=== PATIENT | female | born 1990 | race Caucasian/White ===

== ENCOUNTER 2018-03-10 09:48 | Observation (INO) ==
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
[2018-03-10 11:08] LABS: Baso % (Auto) 0.3 % (0.0-2.0); Eos % (Auto) 0.3 % (0.0-4.0); Hematocrit 38.2 % (35.0-46.0); Hemoglobin 12.8 gm/dL (11.6-15.3); Lymph # (Auto) 3.2 th/mm3 (1.0-4.8); Lymph % (Auto) 22.7 % (9.0-44.0); Mean Corpuscular HGB Conc 33.6 % (32.0-36.0); Mean Corpuscular Hemoglobin 31.9 pg (27.0-34.0); Mean Corpuscular Volume 94.9 fL (80.0-100.0); Mono # (Auto) 1.1 th/mm3 (0.0-0.9); Neut # (Auto) 9.7 th/mm3 (1.8-7.7); Neut % (Auto) 68.7 % (16.0-70.0); Platelet Count 343 th/mm3 (150-450); Red Blood Count 4.03 mil/mm3 (4.00-5.30); Red Cell Distribution Width 15.3 % (11.6-17.2); White Blood Count 14.2 th/mm3 (4.0-11.0)
[2018-03-10 11:28] LABS: Alanine Aminotransferase 11 U/L (10-53); Albumin 3.6 g/dL (3.4-5.0); Anion Gap 10 meq/L (5-15); Aspartate Aminotransferase 11 U/L (15-37); Blood Urea Nitrogen 4 mg/dL (7-18); Calcium 8.4 mg/dL (8.5-10.1); Carbon Dioxide 19.3 meq/L (21.0-32.0); Chloride 110 meq/L (98-107); Glomerular Filtration Rate Greater Than 89 mL/min (>89); Glucose,Random 87 mg/dL (74-106); Magnesium 2.1 mg/dL (1.5-2.5); Sodium 139 meq/L (136-145)
[2018-03-10 11:36] LABS: Alkaline Phosphatase 137 U/L (45-117); Total Protein 7.8 g/dL (6.4-8.2)
--- NOTE | 2018-03-10 11:49 | CT ---
EXAM DATE: 03/10/2018 11:41 AM EST AGE/SEX: 27 years / Female INDICATIONS: Altered mental status., History of neurofibromatosis. CLINICAL DATA: This is the patient's initial encounter. Patient reports that signs and symptoms have been present for 2 weeks and indicates a pain score of 0/10. MEDICAL/SURGICAL HISTORY: None. . brain shunt RADIATION DOSE: 35.24 CTDI (mGy) [place] [facility] [place]. . TECHNIQUE: CT of the head without contrast. Using automated exposure control and adjustment of the mA and/or kV according to patient size, radiation dose was kept as low as reasonably achievable to ob tain optimal diagnostic quality images. DICOM format image data is available electronically for revi ew and comparison. FINDINGS: Shunt is seen entering from the frontal region with a residual small and slitlike. Patient may be ove r shunted. There is no parenchymal hemorrhage Versus described cranial masses or poorly visualized on this noncontrast CT. Partially calcified mass is seen involving the left clivus that is new from the comparison study. CONCLUSION: 1. History of neurofibromatosis with shunt. Small slitlike ventricles 2. MRI without and with contrast is suggested for further follow-up. 3. Previous described intracranial masses are not apparent on this noncontrast CT. Electronically signed by: Steve Ruiz MD Board Certified Radiologist 03/10/2018 11:47 AM EST
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
[2018-03-10] MEDS ORDERED: Bisacodyl 10 MG Supp RECTAL PRN (14:10)
[2018-03-10] MEDS ORDERED: Acetaminophen 325 MG Tablet PO PRN (14:10)
[2018-03-10] MEDS: Enoxaparin Inj 30 MG/0.3 ML Syringe SQ SCH (15:42)
[2018-03-10] MEDS: Sod Chloride 0.9% Inj 1,000 ML IV.CONT SCH (15:42)
--- NOTE | 2018-03-10 15:42 | XR ---
EXAM DATE: 03/10/2018 3:36 PM EST AGE/SEX: 27 years / Female INDICATIONS: Evaluate shunt patency CLINICAL DATA: This is the patient's initial encounter. Patient reports that signs and symptoms have been present for 1 day and indicates a pain score of Nonresponsive. MEDICAL/SURGICAL HISTORY: . meningioma, altered mental status . shunt COMPARISON: [facility] [place], CHEST PA & LAT, 08/02/2010. . FINDINGS: Examination includes two-view skull, two-view C-spine, and frontal views of the chest and abdomen. Ventriculostomy shunt tip is projected in the left lateral ventricle . The alignment of the tubing with the reservoir is maintained without evidence of separation. The shunt tubing has a normal course through the neck and chest without discontinuity or kink. The shunt tubing is coiled in the left pelvis without displacement of the bowel about the distal tip. CONCLUSION: Shunt tubing appears intact without evidence of disruption or kinking. Electronically signed by: Vj Fulton MD Board Certified Radiologist 03/10/2018 3:41 PM EST
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
--- NOTE | 2018-03-10 17:37 | P.CONNS ---
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 Xiao ([place], age 20), who has been seeing people who are not present and speaking to them including possibly some suicidal ideation. Brought by parents to PCP and then here, Rust acted, patient refusing admission, CT brain obtained showing stable ventricle size and shunt series intact. Psych history so presentation currently unlikely to be neurosurgically related. PMFSH - History History Provided By: Patient - Surgical History Surgical History: Surgical History (Last Updated 03/10/18 @ 10:47 by sIamar Martin) History of brain shunt - Tobacco History Smoking Status: Unknown if ever smoked - Alcohol History How Often Do You Have a Drink Containing Alcohol: Unable to Obtain - Substance Use History Substance History: Unable to Obtain - Travel History Recent Travel in the [place] Within the Last 8 Weeks: No Recent Travel Out of the Country Within the Last 8 Weeks: No - Immunization History Tetanus Immunization: Unable to Assess Medications and Allergies Active Medications: Active Medications Acetaminophen (Tylenol) 650 mg PO Q4H PRN PRN Reason: Temp > 100.4 Al Hydroxide/Mg Hydroxide (Milk Of Magnesia Liq) 30 ml PO Q12H PRN PRN Reason: Mild Constipation Bisacodyl (Dulcolax Supp) 10 mg RECTAL DAILY PRN PRN Reason: SEVERE CONSITIPATION Enoxaparin Sodium (Lovenox Inj) 30 mg SQ Q24H [facility] Last Admin: 03/10/18 15:42 Dose: Not Given Sodium Chloride (Ns Inj) 1,000 mls @ 100 mls/hr IV.CONT .Q10H [facility] Last Admin: 03/10/18 15:42 Dose: Not Given Lactulose (Lactulose Liq) 30 ml PO DAILY PRN PRN Reason: SEVERE CONSITIPATION Lorazepam (Ativan Inj) 0.5 mg IV.PUSH Q4H PRN PRN Reason: AGITATION Ondansetron HCl (Zofran Inj) 4 mg IV.PUSH Q6H PRN PRN Reason: NAUSEA OR VOMITING Senna/Docusate Sodium (Kimi-Colace) 1 tab PO BID [facility] Sennosides (Senokot) 17.2 mg PO Q12H PRN PRN Reason: Moderate Constipation Sodium Chloride (Ns Flush) 2 ml IV.FLUSH BID [facility] Sodium Chloride (Ns Flush) 2 ml IV.FLUSH PRN PRN PRN Reason: FLUSH AFTER USING IV ACCESS Allergies Allergy/AdvReac Type Severity Reaction Status Date / Time ibuprofen Allergy Severe HIVES Unverified 10/23/16 18:39 mold Allergy Mild HIVES Unverified 10/23/16 18:39 Exam Vital signs: Vital Signs 03/10/18 09:52 03/10/18 10:47 Temperature 97.6 F Pulse Rate 116 H 114 H Respiratory Rate 20 17 Blood Pressure 110/72 114/53 L Pulse Oximetry 97 99 Intake & Output 03/09/18 03/10/18 03/10/18 18:59 06:59 18:59 Weight 49.895 kg Narrative: A&O to person, place, requesting to be discharged CN II-XII intact Motor 5/5 UE/LE Shunt incisions c/d/i Results - Laboratory Findings CBC and BMP: 03/10/18 10:55 03/10/18 10:55 Abnormal lab findings: Abnormal Labs 03/10/18 03/10/18 10:55 10:55 WBC 14.2 H Neut # (Auto) 9.7 H [place] # (Auto) 1.1 H Chloride 110 H Carbon Dioxide 19.3 L BUN 4 L Calcium 8.4 L AST 11 L Alkaline Phosphatase 137 H Assessment and Plan - Plan 27yoF s/p LIBRARIAN HELPER Shunt, with NF2, implanted in [place] ([place], 2011), admitted with psychiatric hallucinations. Head CT, shunt series stable. Current presentation unlikely related to shunt or neurosurgical issue. Please call with questions.
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
[2018-03-10] MEDS: Senna/Docusate Sodium 8.6/50 MG Tablet PO SCH (22:03)
[2018-03-11] MEDS: Sod Chloride 0.9% Inj 1,000 ML IV.CONT SCH ×2 (02:20→10:08)
[2018-03-11 07:59] LABS: Baso % (Auto) 0.1 % (0.0-2.0); Eos # (Auto) 0.1 th/mm3 (0.0-0.4); Eos % (Auto) 0.8 % (0.0-4.0); Hemoglobin 11.3 gm/dL (11.6-15.3); Lymph # (Auto) 2.6 th/mm3 (1.0-4.8); Mean Corpuscular HGB Conc 33.2 % (32.0-36.0); Mean Corpuscular Hemoglobin 31.6 pg (27.0-34.0); Mean Corpuscular Volume 95.2 fL (80.0-100.0); Mean Platelet Volume 8.6 fL (7.0-11.0); Mono # (Auto) 0.8 th/mm3 (0.0-0.9); Mono % (Auto) 7.4 % (0.0-8.0); Neut # (Auto) 7.8 th/mm3 (1.8-7.7); Neut % (Auto) 68.7 % (16.0-70.0); Platelet Count 232 th/mm3 (150-450); Red Blood Count 3.57 mil/mm3 (4.00-5.30); White Blood Count 11.4 th/mm3 (4.0-11.0)
[2018-03-11 08:30] LABS: Alanine Aminotransferase 8 U/L (10-53); Alkaline Phosphatase 108 U/L (45-117); Anion Gap 6 meq/L (5-15); Aspartate Aminotransferase 9 U/L (15-37); Blood Urea Nitrogen 6 mg/dL (7-18); Calcium 8.2 mg/dL (8.5-10.1); Chloride 114 meq/L (98-107); Creatine Kinase 216 U/L (26-192); Glomerular Filtration Rate Greater Than 89 mL/min (>89); Glucose,Random 78 mg/dL (74-106); Potassium 3.5 meq/L (3.5-5.1); Sodium 144 meq/L (136-145); Total Protein 6.3 g/dL (6.4-8.2)
[2018-03-11] MEDS: Senna/Docusate Sodium 8.6/50 MG Tablet PO SCH ×2 (08:46→21:03)
[2018-03-11 08:53] LABS: CKMB Percent 3.1 % (0.0-4.0); Creatine Kinase MB 6.6 ng/mL (0.5-3.6)
--- NOTE | 2018-03-11 11:39 | P.PNNEU ---
Subjective Active Medications: Active Medications Acetaminophen (Tylenol) 650 mg PO Q4H PRN PRN Reason: Temp > 100.4 Al Hydroxide/Mg Hydroxide (Milk Of Magnesia Liq) 30 ml PO Q12H PRN PRN Reason: Mild Constipation Bisacodyl (Dulcolax Supp) 10 mg RECTAL DAILY PRN PRN Reason: SEVERE CONSITIPATION Enoxaparin Sodium (Lovenox Inj) 30 mg SQ Q24H [facility] Last Admin: 03/10/18 15:42 Dose: Not Given Sodium Chloride (Ns Inj) 1,000 mls @ 100 mls/hr IV.CONT .Q10H [facility] Last Infusion: 03/11/18 11:30 Dose: 0 mls/hr Lactulose (Lactulose Liq) 30 ml PO DAILY PRN PRN Reason: SEVERE CONSITIPATION Lorazepam (Ativan Inj) 0.5 mg IV.PUSH Q4H PRN PRN Reason: AGITATION Ondansetron HCl (Zofran Inj) 4 mg IV.PUSH Q6H PRN PRN Reason: NAUSEA OR VOMITING Senna/Docusate Sodium (Kimi-Colace) 1 tab PO BID [facility] Last Admin: 03/11/18 08:46 Dose: Not Given Sennosides (Senokot) 17.2 mg PO Q12H PRN PRN Reason: Moderate Constipation Sodium Chloride (Ns Flush) 2 ml IV.FLUSH BID [facility] Last Admin: 03/11/18 08:46 Dose: Not Given Sodium Chloride (Ns Flush) 2 ml IV.FLUSH PRN PRN PRN Reason: FLUSH AFTER USING IV ACCESS Allergies/Adverse Reactions: Allergies Allergy/AdvReac Type Severity Reaction Status Date / Time ibuprofen Allergy Severe HIVES Unverified 10/23/16 18:39 mold Allergy Mild HIVES Unverified 10/23/16 18:39 Physical Exam Vital signs: Vital Signs 03/10/18 19:25 03/11/18 00:00 03/11/18 04:00 Temperature 97.9 F 97 F L 98 F Pulse Rate 101 H 91 H 90 Respiratory Rate 18 18 20 Blood Pressure 90/55 L 97/59 L 91/54 L Pulse Oximetry 97 97 95 03/11/18 07:50 Temperature 98.5 F Pulse Rate 103 H Respiratory Rate 16 Blood Pressure 106/55 L Pulse Oximetry 99 Intake & Output 03/10/18 03/11/18 03/11/18 18:59 06:59 18:59 Intake Total 480 / 480 Balance 480 / 480 Weight 49.895 kg Intake: Oral 480 / 480 Narrative: awake knows month not yr knows town she lives in left eye blind old some r sided motor sx old alert - Urinary Catheter Management Straight Cath placed during this visit: no Reason for continuing: Not indwelling catheter Objective Laboratory Results - last 24 hr 03/10/18 03/10/18 03/10/18 10:55 10:55 10:55 WBC RBC Hgb Hct MCV MCH MCHC RDW Plt Count MPV Neut % (Auto) Lymph % (Auto) [place] % (Auto) Eos % (Auto) Baso % (Auto) Neut # (Auto) Lymph # (Auto) [place] # (Auto) Eos # (Auto) Baso # (Auto) WBC Differential Differential Comment ESR 26 H Sodium Potassium Chloride Carbon Dioxide Anion Gap BUN Creatinine Estimated GFR Random Glucose Calcium Total Bilirubin Direct Bilirubin Indirect Bilirubin AST ALT Alkaline Phosphatase Total Creatine Kinase CK-MB (CK-2) CK-MB (CK-2) % Total Protein Albumin Vitamin B12 123 L Beta HCG, Qual Less than 1.0 03/11/18 03/11/18 06:51 06:57 WBC 11.4 H RBC 3.57 L Hgb 11.3 L Hct 34.0 L MCV 95.2 MCH 31.6 MCHC 33.2 RDW 15.0 Plt Count 232 D MPV 8.6 Neut % (Auto) 68.7 Lymph % (Auto) 23.0 [place] % (Auto) 7.4 Eos % (Auto) 0.8 Baso % (Auto) 0.1 Neut # (Auto) 7.8 H Lymph # (Auto) 2.6 [place] # (Auto) 0.8 Eos # (Auto) 0.1 Baso # (Auto) 0.0 WBC Differential . Differential Comment Auto diff final ESR Sodium 144 Potassium 3.5 Chloride 114 H Carbon Dioxide 24.0 Anion Gap 6 BUN 6 L Creatinine 0.48 L Estimated GFR Greater than 89 Random Glucose 78 Calcium 8.2 L Total Bilirubin 0.3 Direct Bilirubin 0.1 Indirect Bilirubin 0.2 AST 9 L ALT 8 L Alkaline Phosphatase 108 Total Creatine Kinase 216 H CK-MB (CK-2) 6.6 H CK-MB (CK-2) % 3.1 Total Protein 6.3 L D Albumin 3.0 L D Vitamin B12 Beta HCG, Qual Review/Management - Review/Management Plan: imp refusing eeg and mri med team needs to find out from family what home meds are and if on sz meds restart that b12 shots and mvi stable neuro
[2018-03-11 12:05] LABS: Amphetamine Screen,Urine Neg (Neg); Barbiturate Screen,Urine Neg (Neg); Cannabinoid Screen,Urine Pos (Neg); Cocaine Screen,Urine Neg (Neg); Opiate Screen,Urine Neg (Neg)
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
[2018-03-11] MEDS ORDERED: clonazePAM 1 MG Tablet PO PRN (12:33)
[2018-03-11] MEDS: Enoxaparin Inj 30 MG/0.3 ML Syringe SQ SCH (14:31)
[2018-03-11] MEDS: Lacosamide 100 MG Tablet PO SCH (21:03)
[2018-03-11] MEDS: Topiramate 25 MG Tablet PO SCH (21:03)
[2018-03-11] MEDS: levETIRAcetam 500 MG Tablet PO SCH (21:03)
[2018-03-11 22:03] LABS: Amorphous Sediment,Urine Rare /hpf; Bacteria,Urine Occasional /hpf; Bilirubin,Urine Negative (Negative); Clarity,Urine Hazy (Clear); Color,Urine Yellow (Yellw/Straw); Glucose,Urine (UA) Negative (Negative); Leukocyte Esterase,Urine Small (Negative); Mucus,Urine Few /lpf (Occasional); Nitrite,Urine Negative (Negative); Squamous Epithelial Cell,Urine 1 /hpf (0-5)
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
[2018-03-12] MEDS ORDERED: Escitalopram 10 MG Tablet PO SCH (09:00)
--- NOTE | 2018-03-12 09:18 | P.PNNEU ---
Subjective Active Medications: Active Medications Acetaminophen (Tylenol) 650 mg PO Q4H PRN PRN Reason: Temp > 100.4 Al Hydroxide/Mg Hydroxide (Milk Of Magnesia Liq) 30 ml PO Q12H PRN PRN Reason: Mild Constipation Bisacodyl (Dulcolax Supp) 10 mg RECTAL DAILY PRN PRN Reason: SEVERE CONSITIPATION Clonazepam (Klonopin) 1 mg PO Q8HR PRN PRN Reason: ANXIETY AND/OR AGITATION Cyanocobalamin (Vitamin B12 Inj) 1,000 mcg SQ Q24H [facility] Stop: 03/13/18 12:01 Last Admin: 03/11/18 14:30 Dose: 1,000 mcg Enoxaparin Sodium (Lovenox Inj) 30 mg SQ Q24H [facility] Last Admin: 03/11/18 14:31 Dose: 30 mg Escitalopram Oxalate (Lexapro) 10 mg PO DAILY [facility] Lacosamide (Vimpat) 200 mg PO BID [facility] Last Admin: 03/11/18 21:03 Dose: 200 mg Lactulose (Lactulose Liq) 30 ml PO DAILY PRN PRN Reason: SEVERE CONSITIPATION Levetiracetam (Keppra) 1,500 mg PO BID [facility] Last Admin: 03/11/18 21:03 Dose: 1,500 mg Lorazepam (Ativan Inj) 0.5 mg IV.PUSH Q4H PRN PRN Reason: AGITATION Last Admin: 03/12/18 08:31 Dose: 0.5 mg Multivitamins (Theragran) 1 tab PO DAILY [facility] Last Admin: 03/11/18 13:40 Dose: 1 tab Ondansetron HCl (Zofran Inj) 4 mg IV.PUSH Q6H PRN PRN Reason: NAUSEA OR VOMITING Senna/Docusate Sodium (Kimi-Colace) 1 tab PO BID [facility] Last Admin: 03/11/18 21:03 Dose: 1 tab Sennosides (Senokot) 17.2 mg PO Q12H PRN PRN Reason: Moderate Constipation Sodium Chloride (Ns Flush) 2 ml IV.FLUSH BID [facility] Last Admin: 03/11/18 21:04 Dose: 2 ml Sodium Chloride (Ns Flush) 2 ml IV.FLUSH PRN PRN PRN Reason: FLUSH AFTER USING IV ACCESS Topiramate (Topamax) 150 mg PO BID [facility] Last Admin: 03/11/18 21:03 Dose: 150 mg Allergies/Adverse Reactions: Allergies Allergy/AdvReac Type Severity Reaction Status Date / Time ibuprofen Allergy Severe HIVES Unverified 10/23/16 18:39 mold Allergy Mild HIVES Unverified 10/23/16 18:39 Physical Exam Vital signs: Vital Signs 03/11/18 11:55 03/11/18 15:57 03/11/18 19:38 Temperature 99.0 F 98.5 F 99.3 F Pulse Rate 108 H 105 H 118 H Respiratory Rate 16 20 16 Blood Pressure 99/58 L 102/59 L 109/57 L Pulse Oximetry 95 95 97 03/11/18 23:27 03/12/18 04:00 03/12/18 08:05 Temperature 98.2 F 98.0 F 98.6 F Pulse Rate 108 H 110 H 116 H Respiratory Rate 16 16 17 Blood Pressure 96/54 L 98/56 L 102/59 L Pulse Oximetry 96 97 96 Intake & Output 03/11/18 03/12/18 03/12/18 18:59 06:59 18:59 Intake Total 1000 / 1000 Balance 1000 / 1000 Intake: IV 1000 / 1000 NS Inj 1,000 ML @ 100 mls/hr IV 1000 / 1000 .CONT .Q10H [facility] Rx#:[id number] Other: # Voids 2 Narrative: awake acting out - Urinary Catheter Management Straight Cath placed during this visit: no Reason for continuing: Not indwelling catheter Objective Laboratory Results - last 24 hr 03/11/18 03/11/18 11:41 11:41 Urine Color Yellow Urine Clarity Hazy H Urine pH 7.0 Ur Specific [place] 1.010 Urine Protein 30 H Urine Glucose (UA) Negative Urine Ketones Negative Urine Occult Blood Large H Urine Nitrate Negative Urine Bilirubin Negative Urine Urobilinogen Less than 2 Ur Leukocyte Esterase Small H Urine RBC Urine WBC 13 H Urine WBC Clumps Rare H Ur Squamous Epith Cells 1 Amorphous Sediment Rare H Urine Bacteria Occasional H Urine Mucus Few H Micro UA Comment Culture indicated Ur Microscopic Review Not Reportable Urine Culture Comments Culture indicated Urine Opiates Screen Neg Ur Barbiturates Screen Neg Ur Amphetamines Screen Neg U Benzodiazepines Scrn Neg Urine Cocaine Screen Neg U Cannabinoids Screen Pos H Review/Management - Review/Management Plan: imp refusing eeg and mri med team needs to find out from family what home meds are and if on sz meds restart that b12 shots and mvi stable neuro ----- 03/12/18 on vimpat top and keppra maxed out eeg shows some left frontal cnetral sharps > right will add tegretol
[2018-03-12] MEDS ORDERED: carBAMazepine 200 MG Tablet PO SCH (10:00)
[2018-03-12] MEDS: levETIRAcetam 500 MG Tablet PO SCH (10:22)
[2018-03-12] MEDS: Topiramate 25 MG Tablet PO SCH (10:23)
[2018-03-12] MEDS: Senna/Docusate Sodium 8.6/50 MG Tablet PO SCH (10:23)
[2018-03-12] MEDS: Lacosamide 100 MG Tablet PO SCH (11:09)
[2018-03-12 11:14] LABS: Anti-Nuclear Antibody Screen Neg (Neg)
[2018-03-12 11:23] VITALS: RESP 16
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
[2018-03-12] MEDS: Enoxaparin Inj 30 MG/0.3 ML Syringe SQ SCH (13:15)
[2018-03-12] MEDS ORDERED: Sod Chloride 0.9% Inj 1,000 ML IV.CONT SCH (14:17)
--- NOTE | 2018-03-12 14:45 | MG ---
cc: Sana Klein MD DATE: 03/12/2018. REFERRING PHYSICIAN: Dr. Del Toro Room: F67 With photic stimulation awake, uncooperative. EEG 08/04/2010 was done. I do not have the report nor the report of the CT. Admitted with visual and auditory hallucinations, combative upon arrival to the ER. History of cerebellar mass, SAUSAGE CANNER shunt on Lovenox, B12, Vimpat, Keppra, Theragran and topiramate. DESCRIPTION OF RECORD: Noted from the beginning portion of the study at Epoch 12, there are what looks like sharp waves seen bilaterally, but more prominent over the left mid to the right; initially seen at Epoch 12, at 13 and stops before Epoch 14 and then restart again at 18, 20, 30. Again, at Epoch 59. They are not continuous or rhythmic, off and on throughout the recording. Hyperventilation was started towards the end of the recording as well as photic. Photic showed more eye movement. IMPRESSION: Abnormal EEG due to bilateral sharps as described consistent with what looks like epileptic potentials in this patient. Clinical correlation. MD REJI Khan/ramses/jm , 12:57 PM , 01:02 PM
[2018-03-12 15:24] VITALS: BP 85/54; PULSE 95; TEMP 98.7; O2SAT 96
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
== END 2018-03-12 16:02 ==
LOC: NEPE 09:48 → NEDA 09:48 → NEPFCDU 18:58
PROVIDERS: ADMIT Hospitalist; ATTEND Hospitalist
DX: H54.62 Unqualified visual loss, left eye, normal vision right eye; Z91.5 Personal history of self-harm; R45.851 Suicidal ideations; Q85.02 Neurofibromatosis, type 2; R26.9 Unspecified abnormalities of gait and mobility; Z87.820 Personal history of traumatic brain injury; D72.829 Elevated white blood cell count, unspecified; G40.909 Epilepsy, unspecified, not intractable, without status epilepticus; Z79.899 Other long term (current) drug therapy; R45.1 Restlessness and agitation; Z78.1 Physical restraint status; Z98.2 Presence of cerebrospinal fluid drainage device; E53.8 Deficiency of other specified B group vitamins; R44.0 Auditory hallucinations; R41.89 Other symptoms and signs involving cognitive functions and awareness; R44.1 Visual hallucinations; R94.01 Abnormal electroencephalogram [EEG]; F12.10 Cannabis abuse, uncomplicated; F32.9 Major depressive disorder, single episode, unspecified; M79.7 Fibromyalgia; R41.82 Altered mental status, unspecified; R00.0 Tachycardia, unspecified
CPT/HCPCS: 70250; 70450; 71010; 71045; 72040; 74000; 74018; 80048; 80053; 80076; 80177; 80299; 80307; 81001; 82491; 82550; 82552; 82607; 83735; 83918; 83921; 84443; 84703; 85025; 85651; 85652; 86038; 86592; 87086; 90774; 90784; 95819; 96361; 96372; 96374; 96376; 97162; 99291; C8952; G0378; G8987; G8988; J1650; J2060; J3420; J7030

== ENCOUNTER 2018-03-12 16:20 | Inpatient (IN) ==
[2018-03-12] MEDS ORDERED: Aluminum/Magnesium/Simethacone Susp 30 ML UDC PO PRN (19:11)
[2018-03-12] MEDS: Topiramate 25 MG Tablet PO SCH (20:27)
[2018-03-12] MEDS: carBAMazepine 200 MG Tablet PO SCH (20:27)
[2018-03-12] MEDS: levETIRAcetam 500 MG Tablet PO SCH (20:27)
[2018-03-12] MEDS: Topiramate 100 MG Tablet PO SCH (20:27)
[2018-03-12] MEDS: Lacosamide 100 MG Tablet PO SCH (20:28)
[2018-03-13] MEDS ORDERED: Haloperidol Inj 5 MG/ML Ampul ONE (06:16)
[2018-03-13] MEDS ORDERED: Haloperidol Inj 5 MG/ML Ampul IM ONE (06:45)
[2018-03-13] MEDS: carBAMazepine 200 MG Tablet PO SCH ×3 (08:25→20:48)
[2018-03-13] MEDS: Topiramate 25 MG Tablet PO SCH ×3 (08:25→20:48)
[2018-03-13] MEDS: Lacosamide 100 MG Tablet PO SCH ×3 (08:25→20:49)
[2018-03-13] MEDS: Topiramate 100 MG Tablet PO SCH ×3 (08:25→20:48)
[2018-03-13] MEDS: levETIRAcetam 500 MG Tablet PO SCH ×3 (08:25→20:48)
[2018-03-13] MEDS: Escitalopram 10 MG Tablet PO SCH ×2 (08:26→11:26)
[2018-03-13 08:34] LABS: Anion Gap 9 meq/L (5-15); Blood Urea Nitrogen 6 mg/dL (7-18); Calcium 8.3 mg/dL (8.5-10.1); Chloride 113 meq/L (98-107); Cholesterol 102 mg/dL (120-200); Glomerular Filtration Rate Greater Than 89 mL/min (>89); Glucose,Random 102 mg/dL (74-106); Sodium 144 meq/L (136-145)
[2018-03-13 08:38] LABS: Chol/HDL Ratio 2.57 Ratio; HDL Cholesterol 39.6 mg/dL (40.0-60.0); LDL Cholesterol,Calculated 48 mg/dL (0-99); Triglycerides 71 mg/dL (42-150)
[2018-03-13 09:21] LABS: Hemoglobin A1c 5.2 % (4.3-6.0)
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
[2018-03-13] MEDS ORDERED: Sod Chloride 0.9% Inj 1,000 ML IV.CONT SCH (17:33)
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
[2018-03-13] MEDS ORDERED: levETIRAcetam 1000mg/100mL Inj 100 ML IV.SIG ONE (20:42)
[2018-03-13 21:12] LABS: ABG Base Excess -3.4 mmol/L (-2-2); ABG PCO2 33 mmHg (38-42); ABG PO2 106 mmHG (61-120)
[2018-03-13] MEDS: Potassium Chlor 20 mEq Premix 20 MEQ/100 ML PIGGYBACK IV.SIG SCH ×2 (21:38→23:30)
--- NOTE | 2018-03-14 07:48 | P.PNNEU ---
Subjective Active Medications: Active Medications Al Hydrox/Mg Hydrox/Simethicone (Mag-Al Plus Susp Liq) 30 ml PO Q6H PRN PRN Reason: DYSPEPSIA Al Hydroxide/Mg Hydroxide (Milk Of Magnesia Liq) 30 ml PO Q12H PRN PRN Reason: Mild Constipation Carbamazepine (Tegretol) 200 mg PO BID [facility] Cyanocobalamin (Vitamin B12 Inj) 1,000 mcg SQ DAILY [facility] Stop: 03/16/18 23:59 Diphenhydramine HCl (Benadryl) 50 mg PO HS PRN PRN Reason: INSOMNIA Escitalopram Oxalate (Lexapro) 10 mg PO DAILY [facility] Last Admin: 03/13/18 11:26 Dose: 10 mg Lacosamide (Vimpat) 200 mg PO BID [facility] Last Admin: 03/13/18 20:49 Dose: Not Given Lactulose (Lactulose Liq) 30 ml PO DAILY PRN PRN Reason: SEVERE CONSITIPATION Levetiracetam (Keppra) 1,500 mg PO BID [facility] Last Admin: 03/13/18 20:48 Dose: Not Given Lorazepam (Ativan) 1 mg PO Q6H PRN PRN Reason: MODERATE TO SEVERE ANXIETY Risperidone (Risperdal) 1 mg PO BID [facility] Last Admin: 03/13/18 20:48 Dose: Not Given Sennosides (Senokot) 17.2 mg PO Q12H PRN PRN Reason: Moderate Constipation Topiramate (Topamax) 100 mg PO BID [facility] Last Admin: 03/13/18 20:48 Dose: Not Given Topiramate (Topamax) 50 mg PO BID [facility] Last Admin: 03/13/18 20:48 Dose: Not Given Allergies/Adverse Reactions: Allergies Allergy/AdvReac Type Severity Reaction Status Date / Time ibuprofen Allergy Severe HIVES Unverified 10/23/16 18:39 mold Allergy Mild HIVES Unverified 10/23/16 18:39 Physical Exam Vital signs: Vital Signs 03/13/18 17:34 03/14/18 05:37 Temperature 98.8 F 98 F Pulse Rate 119 H 98 H Respiratory Rate 16 16 Blood Pressure 103/62 101/59 L Pulse Oximetry 97 99 Intake & Output 03/13/18 03/14/18 03/14/18 18:59 06:59 18:59 Intake Total 120 / 120 660 / 660 Balance 120 / 120 660 / 660 Intake: IV 300 / 300 KCl 20 mEq Premix Inj 20 meq In 200 / 200 100 ml @ 50 mls/hr IV.SIG Q2H YOANA Rx#:[id number] Keppra 1000 mg/100 mL Premix 100 / 100 100 ML @ 400 mls/hr IV.SIG ONCE ONE Rx#:[id number] Oral 120 / 120 360 / 360 Other: # Voids 2 2 Narrative: awake less volatile moves all knows yr and place Objective Laboratory Results - last 24 hr 03/13/18 03/13/18 03/13/18 07:19 07:19 07:19 Puncture Site Patient Temperature O2 Saturation ABG pH ABG pCO2 ABG pO2 ABG HCO3 ABG O2 Content ABG Base Excess ABG Methemoglobin Akhil Test Hemoglobin Carboxyhemoglobin O2 Delivery Device Inspired O2 Critical Value Sodium 144 Potassium 3.0 L Chloride 113 H Carbon Dioxide 22.0 Anion Gap 9 BUN 6 L Creatinine 0.49 L Estimated GFR Greater than 89 Random Glucose 102 Hemoglobin A1c 5.2 Calcium 8.3 L Magnesium 2.1 Triglycerides 71 Cholesterol 102 L LDL Cholesterol, Calc 48 HDL Cholesterol 39.6 L Cholesterol/HDL Ratio 2.57 03/13/18 20:07 Puncture Site Right radial Patient Temperature 98.6 O2 Saturation 96 ABG pH 7.41 ABG pCO2 33 L ABG pO2 106 ABG HCO3 20 L ABG O2 Content 16.6 ABG Base Excess -3.4 L ABG Methemoglobin 1.5 Akhil Test + Hemoglobin 12.3 Carboxyhemoglobin 0.6 O2 Delivery Device Roomair Inspired O2 21 Critical Value No Sodium Potassium Chloride Carbon Dioxide Anion Gap BUN Creatinine Estimated GFR Random Glucose Hemoglobin A1c Calcium Magnesium Triglycerides Cholesterol LDL Cholesterol, Calc HDL Cholesterol Cholesterol/HDL Ratio Review/Management - Review/Management Plan: imp doing well on vimpat top keppra and cbz check level and inc to 200 bid check labs will fu saturday b12 shots and mvi recheck eeg saturday
[2018-03-14 07:55] LABS: Anion Gap 13 meq/L (5-15); Blood Urea Nitrogen 6 mg/dL (7-18); Calcium 8.8 mg/dL (8.5-10.1); Carbon Dioxide 17.2 meq/L (21.0-32.0); Chloride 114 meq/L (98-107); Glomerular Filtration Rate Greater Than 89 mL/min (>89); Glucose,Random 96 mg/dL (74-106); Potassium 3.4 meq/L (3.5-5.1); Sodium 144 meq/L (136-145)
[2018-03-14] MEDS: levETIRAcetam 500 MG Tablet PO SCH ×3 (08:35→21:49)
[2018-03-14] MEDS: Escitalopram 10 MG Tablet PO SCH (08:35)
[2018-03-14] MEDS: carBAMazepine 200 MG Tablet PO SCH ×3 (08:35→21:49)
[2018-03-14] MEDS: Lacosamide 100 MG Tablet PO SCH ×3 (08:36→21:50)
[2018-03-14] MEDS: Topiramate 100 MG Tablet PO SCH ×3 (08:36→21:50)
[2018-03-14] MEDS: Topiramate 25 MG Tablet PO SCH ×3 (08:36→21:50)
[2018-03-14 09:46] LABS: Baso % (Auto) 0.2 % (0.0-2.0); Eos % (Auto) 0.1 % (0.0-4.0); Hematocrit 34.8 % (35.0-46.0); Hemoglobin 11.2 gm/dL (11.6-15.3); Lymph # (Auto) 1.3 th/mm3 (1.0-4.8); Lymph % (Auto) 19.1 % (9.0-44.0); Mean Corpuscular HGB Conc 32.3 % (32.0-36.0); Mean Corpuscular Hemoglobin 31.4 pg (27.0-34.0); Mean Corpuscular Volume 97.1 fL (80.0-100.0); Mono # (Auto) 0.5 th/mm3 (0.0-0.9); Mono % (Auto) 6.7 % (0.0-8.0); Neut # (Auto) 5.1 th/mm3 (1.8-7.7); Neut % (Auto) 73.9 % (16.0-70.0); Platelet Count 276 th/mm3 (150-450); Red Blood Count 3.58 mil/mm3 (4.00-5.30); Red Cell Distribution Width 15.3 % (11.6-17.2); White Blood Count 6.9 th/mm3 (4.0-11.0)
[2018-03-14 10:15] LABS: Albumin 3.5 g/dL (3.4-5.0); Anion Gap 12 meq/L (5-15); Aspartate Aminotransferase 21 U/L (15-37); Blood Urea Nitrogen 7 mg/dL (7-18); Calcium 8.8 mg/dL (8.5-10.1); Carbon Dioxide 19.1 meq/L (21.0-32.0); Chloride 112 meq/L (98-107); Glomerular Filtration Rate Greater Than 89 mL/min (>89); Glucose,Random 114 mg/dL (74-106); Potassium 3.4 meq/L (3.5-5.1); Sodium 143 meq/L (136-145)
[2018-03-14 10:22] LABS: Alanine Aminotransferase 14 U/L (10-53); Alkaline Phosphatase 104 U/L (45-117); Carbamazepine (Tegretol) 4.6 mcg/mL (4.0-12.0); Total Protein 7.8 g/dL (6.4-8.2)
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
[2018-03-15] MEDS: LORazepam 1 MG Tablet PO PRN (08:27)
[2018-03-15] MEDS: carBAMazepine 200 MG Tablet PO SCH (08:27)
[2018-03-15] MEDS: Lacosamide 100 MG Tablet PO SCH (08:28)
[2018-03-15] MEDS: Escitalopram 10 MG Tablet PO SCH (08:28)
[2018-03-15] MEDS: levETIRAcetam 500 MG Tablet PO SCH (08:28)
[2018-03-15] MEDS: Topiramate 100 MG Tablet PO SCH (08:28)
[2018-03-15] MEDS: Topiramate 25 MG Tablet PO SCH (08:29)
--- NOTE | 2018-03-15 10:29 | P.PNPSY ---
Subjective Remarks: Patient is seen today sitting on the edge of her bed in her room with nurse Nicole, chart reviewed, patient compliant medication. Patient somewhat irritable somewhat delayed in her responses to my questions. She then started questioning me about my knowledge of her [employer] shunt. Asked me to define what it is. She then told me that she knows what it is. But kept perseverating on that until I set boundaries on my responses. For now continue treatment Review of Systems All other systems reviewed negative except as stated in HPI Mental Status Examination Appearance: Appropriate Consciousness: Alert, Clouded Orientation: Person, Place, Date/Time Motor Activity: Other (Unsteady gait) Speech: Hesitant, Slow Language: Adequate, Perseveration (Continued asking me to define "shunt") Fund of Knowledge: Inadequate Attention and Concentration: Inadequate Memory: Impaired Mood: Other ("good") Affect: Blunt Thought Process & Associations: Disorganized (At times) Thought Content: Thought blocking Hallucination Type: None Delusion Type: None Suicidal Ideation: No Suicidal Plan: No Suicidal Intention: No Homicidal Ideation: No Homicidal Plan: No Homicidal Intention: No Insight: Poor Judgment: Poor Assessment and Plan - Assessment (1) Unspecified psychosis Code(s): F29 - Unspecified psychosis not due to a substance or known physiological condition Status: Acute - Plan Plan: Patient remains psychotic somewhat paranoid and vigilant with little insight. Responses appears somewhat childlike and concrete Justification for Continued Inpatient Stay: At this time patient with decompensated placed in a lower level of care Discharge Planning: To be determined
[2018-03-16] MEDS: carBAMazepine 200 MG Tablet PO SCH ×3 (00:58→21:52)
[2018-03-16] MEDS: Topiramate 100 MG Tablet PO SCH ×3 (00:58→21:52)
[2018-03-16] MEDS: levETIRAcetam 500 MG Tablet PO SCH ×3 (00:58→21:51)
[2018-03-16] MEDS: Topiramate 25 MG Tablet PO SCH ×3 (00:59→21:50)
[2018-03-16] MEDS: Lacosamide 100 MG Tablet PO SCH ×3 (00:59→21:51)
[2018-03-16] MEDS: LORazepam 1 MG Tablet PO PRN ×2 (07:11→21:51)
[2018-03-16] MEDS: Escitalopram 10 MG Tablet PO SCH (08:59)
--- NOTE | 2018-03-16 13:37 | P.PNPSY ---
Subjective Remarks: Patient was seen and case discussed with nursing. Patient is minimally interactive during interview. She has thought blocking. Patient is flat and internally preoccupied. Per nursing she was sitting in the hallway on the floor. Poor p.o. intake Review of Systems All other systems reviewed negative except as stated in HPI Mental Status Examination Appearance: Appropriate Consciousness: Alert, Clouded Orientation: Person, Place, Date/Time Motor Activity: Other (Unsteady gait) Speech: Hesitant, Slow Language: Adequate, Perseveration (Continued asking me to define "shunt") Fund of Knowledge: Inadequate Attention and Concentration: Inadequate Memory: Impaired Mood: Other ("good") Affect: Blunt Thought Process & Associations: Disorganized (At times) Thought Content: Thought blocking Hallucination Type: None Delusion Type: None Suicidal Ideation: No Suicidal Plan: No Suicidal Intention: No Homicidal Ideation: No Homicidal Plan: No Homicidal Intention: No Insight: Poor Judgment: Poor Assessment and Plan - Assessment (1) Unspecified psychosis Code(s): F29 - Unspecified psychosis not due to a substance or known physiological condition Status: Acute - Plan Plan: Continue current treatment plan Justification for Continued Inpatient Stay: Patient would decompensate in a less restrictive setting
[2018-03-17] MEDS: Escitalopram 10 MG Tablet PO SCH (08:42)
[2018-03-17] MEDS: levETIRAcetam 500 MG Tablet PO SCH ×2 (08:42→20:41)
[2018-03-17] MEDS: Lacosamide 100 MG Tablet PO SCH ×2 (08:42→20:40)
[2018-03-17] MEDS: Topiramate 25 MG Tablet PO SCH ×2 (08:42→20:40)
[2018-03-17] MEDS: carBAMazepine 200 MG Tablet PO SCH ×2 (08:42→20:40)
[2018-03-17] MEDS: Topiramate 100 MG Tablet PO SCH ×2 (08:42→20:40)
--- NOTE | 2018-03-17 08:52 | MG ---
cc: Sana Klein MD EEG NUMBER: REFERRING PHYSICIAN: Alverto. ROOM: 400. Hyperventilation and photic not done, uncooperative Awake, drowsy, asleep alert but uncooperative. Her last EEG showed some sharps. Admitted with visual/auditory hallucinations, history of head injury, neurofibromatosis, brain shunt. MEDICATIONS: Tegretol, Vimpat, Keppra, Topamax, Risperdal, Ativan. DESCRIPTION OF RECORD: There is some spike wave activity seen at the beginning. Not continuous but bilateral. There is also quite a bit of artifact interspersed with it; but overall, there still seems to be sharps and spikes seen visible at epoch 21, 22, 23. Then a spike and wave at epoch 36, 41, 47. Interspersed between the abnormalities may be what seems like a normal alpha rhythm in the patient. IMPRESSION: Abnormal EEG due to spike and wave discharges as described, may be ongoing epileptic activity in this patient. Clinical correlation. Sana Klein MD DF/sharan , 08:27 AM , 08:38 AM
--- NOTE | 2018-03-17 09:54 | P.PNNEU ---
Subjective Active Medications: Active Medications Al Hydrox/Mg Hydrox/Simethicone (Mag-Al Plus Susp Liq) 30 ml PO Q6H PRN PRN Reason: DYSPEPSIA Al Hydroxide/Mg Hydroxide (Milk Of Magnesia Liq) 30 ml PO Q12H PRN PRN Reason: Mild Constipation Carbamazepine (Tegretol) 200 mg PO BID [facility] Last Admin: 03/17/18 08:42 Dose: 200 mg Cyanocobalamin (Vitamin B12 Inj) 1,000 mcg SQ Chávez@1200 [facility] Stop: 04/27/18 12:01 Last Admin: 03/16/18 21:53 Dose: 1,000 mcg Cyanocobalamin (Vitamin B12 Inj) 1,000 mcg SQ Q30D [facility] Diphenhydramine HCl (Benadryl) 50 mg PO HS PRN PRN Reason: INSOMNIA Escitalopram Oxalate (Lexapro) 10 mg PO DAILY [facility] Last Admin: 03/17/18 08:42 Dose: 10 mg Lacosamide (Vimpat) 200 mg PO BID [facility] Last Admin: 03/17/18 08:42 Dose: 200 mg Lactulose (Lactulose Liq) 30 ml PO DAILY PRN PRN Reason: SEVERE CONSITIPATION Levetiracetam (Keppra) 1,500 mg PO BID [facility] Last Admin: 03/17/18 08:42 Dose: 1,500 mg Lorazepam (Ativan) 1 mg PO Q6H PRN PRN Reason: MODERATE TO SEVERE ANXIETY Last Admin: 03/16/18 21:51 Dose: 1 mg Multivitamins (Theragran) 1 tab PO DAILY [facility] Last Admin: 03/17/18 08:42 Dose: 1 tab Risperidone (Risperdal) 1 mg PO BID [facility] Last Admin: 03/17/18 08:43 Dose: 1 mg Sennosides (Senokot) 17.2 mg PO Q12H PRN PRN Reason: Moderate Constipation Topiramate (Topamax) 100 mg PO BID [facility] Last Admin: 03/17/18 08:42 Dose: 100 mg Topiramate (Topamax) 50 mg PO BID [facility] Last Admin: 03/17/18 08:42 Dose: 50 mg Allergies/Adverse Reactions: Allergies Allergy/AdvReac Type Severity Reaction Status Date / Time ibuprofen Allergy Severe HIVES Unverified 10/23/16 18:39 mold Allergy Mild HIVES Unverified 10/23/16 18:39 Physical Exam Vital signs: Vital Signs 03/16/18 19:42 03/17/18 05:12 Temperature 98.6 F 98.1 F Pulse Rate 109 H 125 H Respiratory Rate 20 19 Blood Pressure 112/69 105/59 L Pulse Oximetry 96 96 Intake & Output 03/16/18 03/17/18 03/17/18 18:59 06:59 18:59 Intake Total 120 / 120 600 / 600 Balance 120 / 120 600 / 600 Weight 48.4 kg Intake: Oral 120 / 120 600 / 600 Other: # Voids 2 2 Narrative: gait steady some staring ? sz Review/Management - Review/Management Plan: imp doing well on vimpat top keppra and cbz check level and inc to 200 bid check labs will fu saturday b12 shots and mvi recheck eeg 03/17/18 eeg pend check cbz level i dw mom shunt is mri compatible she is ok with mri and pt says she will do one now fu labs
[2018-03-17 11:10] LABS: Baso % (Auto) 0.2 % (0.0-2.0); Eos % (Auto) 0.1 % (0.0-4.0); Hematocrit 35.2 % (35.0-46.0); Hemoglobin 11.5 gm/dL (11.6-15.3); Lymph # (Auto) 1.3 th/mm3 (1.0-4.8); Mean Corpuscular HGB Conc 32.7 % (32.0-36.0); Mean Corpuscular Hemoglobin 31.7 pg (27.0-34.0); Mean Platelet Volume 7.7 fL (7.0-11.0); Mono # (Auto) 0.5 th/mm3 (0.0-0.9); Mono % (Auto) 5.3 % (0.0-8.0); Neut # (Auto) 7.3 th/mm3 (1.8-7.7); Neut % (Auto) 80.4 % (16.0-70.0); Platelet Count 287 th/mm3 (150-450); Red Blood Count 3.63 mil/mm3 (4.00-5.30); Red Cell Distribution Width 15.3 % (11.6-17.2); White Blood Count 9.1 th/mm3 (4.0-11.0)
[2018-03-17 11:22] LABS: Anion Gap 12 meq/L (5-15); Blood Urea Nitrogen 5 mg/dL (7-18); Calcium 8.6 mg/dL (8.5-10.1); Carbon Dioxide 20.9 meq/L (21.0-32.0); Chloride 105 meq/L (98-107); Glomerular Filtration Rate Greater Than 89 mL/min (>89); Glucose,Random 83 mg/dL (74-106); Potassium 3.2 meq/L (3.5-5.1); Sodium 138 meq/L (136-145)
[2018-03-17 11:23] LABS: Carbamazepine (Tegretol) 10.5 mcg/mL (4.0-12.0)
[2018-03-17] MEDS: LORazepam 1 MG Tablet PO PRN (12:04)
--- NOTE | 2018-03-17 12:43 | P.PNPSY ---
Subjective Remarks: Patient seen for follow-up, chart reviewed. Discussion with nursing staff reported that patient with no ETO's last evening, continues to have poor p.o. intake, continues episodes of staring and thought blocking. Patient was found sitting in hospital bed noted to have difficulty with maintaining engagement in interview today. Has episodes of staring unclear whether patient is having any seizure activity during these episodes of staring. Patient appearing to have difficulty with comprehension during interview of certain questions, although is alert and oriented x3 still noted to be confused at times. She states she is feeling tired did recall having spoken with her mother and is under the impression that she will be discharged today. Patient was unable to elaborate further. Patient was reiterated that she would be having EEG and further MRI studies as recommended by neurologist which she was reluctant to believing that she will be going home today. Review of Systems All other systems reviewed negative except as stated in HPI Mental Status Examination Appearance: Appropriate Consciousness: Alert, Clouded Orientation: Person, Place, Date/Time Motor Activity: Other (Unsteady gait) Speech: Hesitant, Slow Language: Adequate, Perseveration (Continued asking me to define "shunt") Fund of Knowledge: Inadequate Attention and Concentration: Inadequate Memory: Impaired Mood: Other ("All right") Affect: Flat Thought Process & Associations: Disorganized (At times), Other ([place]) Thought Content: Thought blocking Hallucination Type: None Delusion Type: None Suicidal Ideation: No Suicidal Plan: No Suicidal Intention: No Homicidal Ideation: No Homicidal Plan: No Homicidal Intention: No Insight: Poor Judgment: Poor Assessment and Plan - Assessment (1) Unspecified psychosis Code(s): F29 - Unspecified psychosis not due to a substance or known physiological condition Status: Acute - Plan Plan: Patient this time continues to have difficulty with engaging adequately during interview was noted to have episodes of staring unclear whether this is related to seizure activity. We will continue current treatment regimen for now and continue neurologic workup, neurology consult input appreciated. We will continue to monitor mood and behavior. We will await results from workup to rule out neurological cause of patient's current mental status. We will order carbamazepine level. Discharge planning in progress. Justification for Continued Inpatient Stay: At risk of further decompensation at lower level care.
--- NOTE | 2018-03-17 13:17 | P.TTN ---
- Patient Problems Problems: 1. Discharge planning 2. Medication compliance 3. Knowledge deficit 4. Lack of coping skills - Progress Toward Goals Provider Present: Dr. Cash Gomez Provider Input: 03/17/2018; per doctor he order EGG, and will be making med adjustment Nurse(s) Present: RN Nurse Input: 03/17/2018; Patient is eating meals and taking her medication, she isolates and is very guarded Psychiatric Counselors Present: Shelley Burr [facility] Psychiatric Therapist Input: 03/17/2018; Counselor will discuss dc planning with patient and her family Group Spec/RT/OT/HOLT Present: JONATHON Yadav Group Spec/RT/OT/HOLT Input: 03/17/2018; patient isolates and refuses groups and activities - Documentation Teaching Recipient: Patient
[2018-03-17 13:27] LABS: Albumin 3.5 g/dL (3.4-5.0)
[2018-03-17 13:29] LABS: Total Protein 7.3 g/dL (6.4-8.2)
--- NOTE | 2018-03-17 16:49 | P.DIET ---
Nutritional Evaluation Type of nutrition evaluation: initial Nutrition consult regarding: Diet Evaluation Nutrition screening: Poor PO Intake Screening comments: 03/17/18 MDC for PPI Objective - Diagnosis psychosis NOS - Objective Body Mass Index: 19.5 % IBW: 97 (IBW = 110lb) Body Weight Used for Calculations: Actual (48.4) Energy Needs - Lower Range (kCal/kg): 28 Energy Needs - Upper Range (kCal/kg): 32 Lower Limit kCal/kg (kCals): 1,355 Upper Limit kCal/kg (kCals): 1,549 Lower Limit Protein Factor (Grams per Kg): 1.1 Upper Limit Protein Factor (Grams per Kg): 1.3 Lower Protein Needs (Protein): 53 Upper Protein Needs (Protein): 63 Dietitian Reviewed in Medical Record: Current diet, Curent medications, Intake & Output, Labs, Medical history Diet Order: regular Oral Diet Intake Amount: Poor <50% Objective Comments: PMH: closed head injury, CVA, neurofibromatosis II Meds: vit B12, MVI Assessment Assessment: Pt currently at nutritional risk r/t poor PO intake and relatively low BMI. Pt currently on a regular diet, has a variable PO intake, eating around 25-50% of most meals per chart. Spoke w/ RN about pts nutritional status, RN stated pt consumed only a 1/2 banana this a.m. She also mentioned that pt does not want to answer questions and is uncooperative, did not want to give any diet preferences. RD to recommend Ensure Enlive TID as PO supplement for additional nutrition. Continue to monitor PO and supplement intake. Labs reviewed, dietitian following. Recommendations: 1. RD to recommend Ensure Enlive TID as PO supplement for additional nutrition 2. Continue to monitor PO and supplement intake 3. Dietitian following Dietitian to Monitor: Lab values, Supplement acceptance, Intake & Output, Diet tolerance, Weight change, PO Intake, Medical course
--- NOTE | 2018-03-17 21:47 | MG ---
cc: Lyndon Zepeda MD ELECTROENCEPHALOGRAM RECORD NUMBER: [id number] DESCRIPTION: An 8-9 Hz background with high-frequency phase reversals at C3 and T3, epoch 8. Phase reversal at C3, epoch 9. Strong phase reversal sharp wave at C3, epoch 13. Background appearance of K complexes and spindles suggestive of stage II sleep. During wakeful state, background increment to 8-9 Hz and a lot of frontal high frequency artifact occurring with occasional phase reversals at C3 and asymmetric bursts of rhythmic delta and theta in the left frontocentral parietal region during wakefulness. Reduced driving with photic stimulation. Single-lead EKG showing sinus rhythm. INTERPRETATION: Abnormal focus in the left central region may be related to a structural lesion, epileptic focus. Clinical correlation. MD MAYRA Verdin/elies , 09:22 PM , 09:28 PM
[2018-03-18] MEDS: LORazepam 1 MG Tablet PO PRN ×2 (04:07→14:56)
--- NOTE | 2018-03-18 07:12 | CT ---
EXAM DATE: 03/18/2018 6:09 AM EST AGE/SEX: 27 years / Female INDICATIONS: Seizure. CLINICAL DATA: This is the patient's initial encounter. Patient reports that signs and symptoms have been present for 1 day and indicates a pain score of 0/10. MEDICAL/SURGICAL HISTORY: Cerebrovascular disease. Neurofibromatosis . Shunt. RADIATION DOSE: 56.35 CTDI (mGy) COMPARISON: [facility] [place], CT HEAD W/O CONTRAST, 03/10/2018. . TECHNIQUE: CT of the head without contrast. Using automated exposure control and adjustment of the mA and/or kV according to patient size, radiation dose was kept as low as reasonably achievable to ob tain optimal diagnostic quality images. DICOM format image data is available electronically for revi ew and comparison. FINDINGS: Left ventricular tube is present with tip in the region of the foramen of Monro and the ventricles ar e slitlike not significantly changed. There is a large approximate 2.8 cm left CP angle mass is diffi cult to accurately measure due to lack of contrast, however appears larger since the prior CT examina tion from 2010 at which time it measured almost 1.8 cm in size. There is mass effect on the medulla a nd fourth ventricle to a significant degree. There is a calcified meningioma in right high convexity posterior parietal 1.2 cm in size with a separate 1 adjacent to the superior clinoid on the left side measures 1.4 cm in size not significantly changed. There is no hemorrhage or extra-axial fluid colle ctions CONCLUSION: 1. 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 2. There are 2 calcified meningioma is not significantly changed. Electronically signed by: Angelina Mello MD Board Certified Radiologist 03/18/2018 7:10 AM EST
[2018-03-18] MEDS: Topiramate 100 MG Tablet PO SCH ×2 (08:55→20:27)
[2018-03-18] MEDS: carBAMazepine 200 MG Tablet PO SCH ×2 (08:55→20:27)
[2018-03-18] MEDS: Lacosamide 100 MG Tablet PO SCH ×2 (08:55→20:25)
[2018-03-18] MEDS: Topiramate 25 MG Tablet PO SCH ×2 (08:55→20:27)
[2018-03-18] MEDS: Escitalopram 10 MG Tablet PO SCH (08:55)
[2018-03-18] MEDS: levETIRAcetam 500 MG Tablet PO SCH ×2 (08:55→20:25)
[2018-03-18 14:32] LABS: Anion Gap 8 meq/L (5-15); Blood Urea Nitrogen 5 mg/dL (7-18); Calcium 8.8 mg/dL (8.5-10.1); Carbon Dioxide 23.7 meq/L (21.0-32.0); Chloride 108 meq/L (98-107); Glomerular Filtration Rate Greater Than 89 mL/min (>89); Glucose,Random 93 mg/dL (74-106); Potassium 3.7 meq/L (3.5-5.1); Sodium 140 meq/L (136-145)
--- NOTE | 2018-03-18 15:05 | P.PNPSY ---
Subjective Remarks: March 18, 2018 Subjective: Patient has not been sleeping. When I initially came to interview her she was sound asleep but this lasted only about an hour. When she was awake she appeared to be having trouble processing questions. Ask if she was hearing voices she said only the voices that other people can hear like people talking in the hallway and "downstairs". Patient has an acutely toxic appearance. Review of Systems Patient has multiple neurological and psychiatric problems and appears toxic. Her speech is hesitant and slow and she requires 3 repetition of questions along with rephrasing. She she responded to questions about what might be bothering her with her ears but that is not possible to get an explanation for exactly what she meant by this. Mental Status Examination Appearance: Disheveled Consciousness: Lethargic, Clouded Orientation: Person, Place, Date/Time Motor Activity: Other (Unsteady gait) Speech: Hesitant, Slow Language: Adequate, Perseveration (Continued asking me to define "shunt") Fund of Knowledge: Inadequate Attention and Concentration: Inadequate Memory: Impaired Mood: Other ("All right") Affect: Flat Thought Process & Associations: Disorganized (At times), Other ([place]) Thought Content: Thought blocking Hallucination Type: None Delusion Type: None Suicidal Ideation: No Suicidal Plan: No Suicidal Intention: No Homicidal Ideation: No Homicidal Plan: No Homicidal Intention: No Insight: Poor Judgment: Poor Assessment and Plan - Assessment (1) Unspecified psychosis Code(s): F29 - Unspecified psychosis not due to a substance or known physiological condition Status: Acute - Plan Plan: Patient this time continues to have difficulty with engaging adequately during interview was noted to have episodes of staring unclear whether this is related to seizure activity. We will continue current treatment regimen for now and continue neurologic workup, neurology consult input appreciated. We will continue to monitor mood and behavior. We will await results from workup to rule out neurological cause of patient's current mental status. We will order carbamazepine level. Discharge planning in progress. Justification for Continued Inpatient Stay: March 18, 2018 patient requires inpatient monitoring of multiple neurological as well as psychiatric issues that could not be managed at a lower level of care.
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
[2018-03-18] MEDS ORDERED: Haloperidol Inj 5 MG/ML Ampul ONE (21:41)
[2018-03-18 22:12] VITALS: TEMP 97.5
[2018-03-18] MEDS ORDERED: Haloperidol Inj 5 MG/ML Ampul IM ONE (22:15)
[2018-03-19 05:56] VITALS: BP 104/62; PULSE 97; RESP 16; O2SAT 98
--- NOTE | 2018-03-19 07:58 | P.PNNEU ---
Subjective Active Medications: Active Medications Al Hydrox/Mg Hydrox/Simethicone (Mag-Al Plus Susp Liq) 30 ml PO Q6H PRN PRN Reason: DYSPEPSIA Al Hydroxide/Mg Hydroxide (Milk Of Magnesia Liq) 30 ml PO Q12H PRN PRN Reason: Mild Constipation Carbamazepine (Tegretol) 200 mg PO BID [facility] Last Admin: 03/18/18 20:27 Dose: 200 mg Cyanocobalamin (Vitamin B12 Inj) 1,000 mcg SQ Chávez@1200 [facility] Stop: 04/27/18 12:01 Last Admin: 03/16/18 21:53 Dose: 1,000 mcg Cyanocobalamin (Vitamin B12 Inj) 1,000 mcg SQ Q30D [facility] Diphenhydramine HCl (Benadryl) 50 mg PO HS PRN PRN Reason: INSOMNIA Last Admin: 03/18/18 20:26 Dose: 50 mg Escitalopram Oxalate (Lexapro) 10 mg PO DAILY [facility] Last Admin: 03/18/18 08:55 Dose: 10 mg Lacosamide (Vimpat) 200 mg PO BID [facility] Last Admin: 03/18/18 20:25 Dose: 200 mg Lactulose (Lactulose Liq) 30 ml PO DAILY PRN PRN Reason: SEVERE CONSITIPATION Levetiracetam (Keppra) 1,500 mg PO BID [facility] Last Admin: 03/18/18 20:25 Dose: 1,500 mg Lorazepam (Ativan) 1 mg PO Q6H PRN PRN Reason: MODERATE TO SEVERE ANXIETY Last Admin: 03/18/18 14:56 Dose: 1 mg Multivitamins (Theragran) 1 tab PO DAILY [facility] Last Admin: 03/18/18 08:55 Dose: 1 tab Risperidone (Risperdal) 1 mg PO BID [facility] Last Admin: 03/18/18 20:26 Dose: 1 mg Sennosides (Senokot) 17.2 mg PO Q12H PRN PRN Reason: Moderate Constipation Topiramate (Topamax) 100 mg PO BID [facility] Last Admin: 03/18/18 20:27 Dose: 100 mg Topiramate (Topamax) 50 mg PO BID [facility] Last Admin: 03/18/18 20:27 Dose: 50 mg Allergies/Adverse Reactions: Allergies Allergy/AdvReac Type Severity Reaction Status Date / Time ibuprofen Allergy Severe HIVES Unverified 10/23/16 18:39 mold Allergy Mild HIVES Unverified 10/23/16 18:39 Physical Exam Vital signs: Vital Signs 03/18/18 08:18 03/18/18 12:25 03/18/18 17:57 Temperature 97.9 F 97.3 F L 97.9 F Pulse Rate 131 H 104 H 117 H Respiratory Rate 20 19 20 Blood Pressure 111/63 101/59 L 122/68 Pulse Oximetry 100 96 96 03/18/18 20:25 03/19/18 05:55 Temperature 97.5 F L 97.5 F L Pulse Rate 109 H 97 H Respiratory Rate 20 16 Blood Pressure 115/73 104/62 Pulse Oximetry 95 98 Narrative: jose pablo last pm a little juan c wilson answers some ? Objective Laboratory Results - last 24 hr 03/18/18 03/18/18 06:39 13:53 Sodium 140 Potassium 3.7 Chloride 108 H Carbon Dioxide 23.7 Anion Gap 8 BUN 5 L Creatinine 0.40 L Estimated GFR Greater than 89 Random Glucose 93 Calcium 8.8 Carbamazepine 10.7 Review/Management - Review/Management Plan: imp doing well on vimpat top keppra and cbz check level and inc to 200 bid check labs will fu saturday b12 shots and mvi recheck eeg 03/17/18 eeg pend check cbz level i dw mom shunt is mri compatible she is ok with mri and pt says she will do one now fu labs 03/19/18 worjking on mri cbz 10 eeg active left central temporal focus on 4 sz meds consider pbarb if eeg not better on cbz
[2018-03-19] MEDS: Lacosamide 100 MG Tablet PO SCH (08:16)
[2018-03-19] MEDS: levETIRAcetam 500 MG Tablet PO SCH (08:16)
[2018-03-19] MEDS: Escitalopram 10 MG Tablet PO SCH (08:16)
[2018-03-19] MEDS: carBAMazepine 200 MG Tablet PO SCH (08:16)
[2018-03-19] MEDS: Topiramate 100 MG Tablet PO SCH (08:16)
[2018-03-19] MEDS: Topiramate 25 MG Tablet PO SCH (08:17)
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
[2018-03-19 12:49] LABS: Free T4 (Free Thyroxine) 1.14 ng/dL (0.76-1.46); Thyroid Stimulating Hormone 0.532 uIU/mL (0.358-3.740); Vitamin B12 1452 pg/mL (193-986)
[2018-03-19] MEDS ORDERED: Gadobutrol PF 2 MMOL/2 ML Vial (for RAD) IV.SIG ONE (16:12)
--- NOTE | 2018-03-19 16:33 | MR ---
EXAM DATE: 03/19/2018 4:17 PM EST AGE/SEX: 27 years / Female INDICATIONS: . Neurofibromatosis type II. CLINICAL DATA: This is the patient's subsequent encounter. Patient reports that signs and symptoms h ave been present for > 1 year and indicates a pain score of 0/10. MEDICAL/SURGICAL HISTORY: . TBI, epilepsy . 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 TECHNIQUE: Multiplanar, multisequence MRI of the thoracic spine was performed without and with 5 ml Gadavist (gadobutrol) contrast as a single exam dose. FINDINGS: There are multiple homogeneously enhancing dural-based nodules within the thoracic spine at T7-8 ante riorly, T10 on the left posteriorly 11-12 posteriorly T12-L1 and L1 posteriorly also consistent with probable multiple schwannomas related to the patient's known diagnosis of neurofibromatosis type II. The largest lesion appears to be located at T11-12 and measures 9 mm. No spinal stenosis is noted. Th ere is no acute fracture or subluxation of the thoracic spine. Mild diffuse degenerative disc disease is noted from T5 through T11. T1-T2: The thecal sac has a normal diameter. No evidence of disc bulge or protrusion. T2-T3: The thecal sac has a normal diameter. No evidence of disc bulge or protrusion. T3-T4: The thecal sac has a normal diameter. No evidence of disc bulge or protrusion. T4-T5: The thecal sac has a normal diameter. No evidence of disc bulge or protrusion. T5-T6: The thecal sac has a normal diameter. No evidence of disc bulge or protrusion. T6-T7: The thecal sac has a normal diameter. No evidence of disc bulge or protrusion. T7-T8: The thecal sac has a normal diameter. No evidence of disc bulge or protrusion. T8-T9: The thecal sac has a normal diameter. No evidence of disc bulge or protrusion. T9-T10: The thecal sac has a normal diameter. No evidence of disc bulge or protrusion. T10-T11: The thecal sac has a normal diameter. No evidence of disc bulge or protrusion. T11-T12: The thecal sac has a normal diameter. No evidence of disc bulge or protrusion. T12-L1: The thecal sac has a normal diameter. No evidence of disc bulge or protrusion. CONCLUSION: 1. Multiple homogeneously enhancing dural-based nodules within the thoracic spine at T7-8 anteriorly , T10 on the left posteriorly 11-12 posteriorly T12-L1 and L1 posteriorly also consistent with probab le multiple schwannomas related to the patient's known diagnosis of neurofibromatosis type II. The la rgest lesion appears to be located at T11-12 and measures 9 mm. No spinal stenosis is noted. 2. No acute fracture or subluxation of the thoracic spine. 3. Mild diffuse degenerative disc disease is noted from T5 through T11. Electronically signed by: Larry Mendez MD Board Certified Radiologist 03/19/2018 4:31 PM EST
--- NOTE | 2018-03-19 16:34 | MR ---
EXAM DATE: 03/19/2018 4:14 PM EST AGE/SEX: 27 years / Female INDICATIONS: . Neurofibromatosis type II. CLINICAL DATA: This is the patient's subsequent encounter. Patient reports that signs and symptoms h ave been present for > 1 year and indicates a pain score of 0/10. MEDICAL/SURGICAL HISTORY: . TBI, epilepsy . 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 TECHNIQUE: Multiplanar, multisequence MRI examination of the cervical spine was performed without an d with 5 ml Gadavist (gadobutrol) contrast as a single exam dose. FINDINGS: The marrow signal appears intact, and the spinal cord appears intact for technique. There are masses in the visualized posterior fossa on the patient's brain discussed on the brain MRI. There 2 separate masses adjacent to one another measuring 1.5 cm in AP diameter and conglomerate size of 2.6 cm in th e left posterior paraspinal soft tissues and muscular structures with a separate one slightly caudal to it at the level of C3-4 measures 7 mm in size. These are most likely neurofibromas in this patien t with a history of neurofibromatosis. There is an approximate 1.6 cm subcutaneous nodule in the mel ent's right upper back at the level of T2 nonspecific could be a complicated cyst versus a subcutaneo us neurofibroma as well. C2-C3: No appreciable compromise to the thecal sac, exiting nerve roots are seen. The neural foramin a are patent bilaterally. No appreciable thecal sac stenosis is seen. C3-C4: No appreciable compromise to the thecal sac, exiting nerve roots are seen. The neural foramin a are patent bilaterally. No appreciable thecal sac stenosis is seen. C4-C5: No appreciable compromise to the thecal sac, exiting nerve roots are seen. The neural foramin a are patent bilaterally. No appreciable thecal sac stenosis is seen. C5-C6: No appreciable compromise to the thecal sac, exiting nerve roots are seen. The neural foramin a are patent bilaterally. No appreciable thecal sac stenosis is seen. C6-C7: No appreciable compromise to the thecal sac, exiting nerve roots are seen. The neural foramin a are patent bilaterally. No appreciable thecal sac stenosis is seen. C7-T1: No appreciable compromise to the thecal sac, exiting nerve roots are seen. The neural foramin a are patent bilaterally. No appreciable thecal sac stenosis is seen. CONCLUSION: 1. Soft tissue masses on the left posterolateral paraspinal at the level of C3-4 most likely neurofi bromas with masses within posterior fossa discussed on the patient's brain MRI. 2. Additional subcutaneous nodule identified in the right upper back posteriorly. 3. No appreciable compromise to spinal cord or exiting nerve roots. Electronically signed by: Angelina Mello MD Board Certified Radiologist 03/19/2018 4:33 PM EST
--- NOTE | 2018-03-19 16:42 | MR ---
EXAM DATE: 03/19/2018 4:21 PM EST AGE/SEX: 27 years / Female INDICATIONS: . Neurofibromatosis type II. CLINICAL DATA: This is the patient's subsequent encounter. Patient reports that signs and symptoms h ave been present for > 1 year and indicates a pain score of 0/10. MEDICAL/SURGICAL HISTORY: . TBI, epilepsy . 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 TECHNIQUE: Multiplanar, multisequence MRI examination of the lumbar spine was performed without and with 5 ml Gadavist (gadobutrol) contrast as a single exam dose. FINDINGS: There are multiple intradural, extra medullary homogeneously enhancing nodules throughout the lumbar and sacral thecal sac as well as within the lower thoracic thecal sac. These are too numerous to coun t and likely represent multiple schwannomas. Meningiomas can also have this appearance. The largest l esion is noted at the L3-4 level centrally and measures 7 mm. There are also neural foraminal lesions on the left at L5-S1 and on the right S1-S2 and L2-3. These also likely represent schwannomas. These lesions likely are related to the patient's known diagnosis of neurofibromatosis type II. T12-L1: The thecal sac has a normal diameter. No evidence of disc bulge or protrusion. The neural foramina are patent bilaterally. L1-L2: The thecal sac has a normal diameter. No evidence of disc bulge or protrusion. The neural foramina are patent bilaterally. L2-L3: The thecal sac has a normal diameter. No evidence of disc bulge or protrusion. The neural foramina are patent bilaterally. L3-L4: The thecal sac has a normal diameter. No evidence of disc bulge or protrusion. The neural foramina are patent bilaterally. L4-L5: The thecal sac has a normal diameter. No evidence of disc bulge or protrusion. The neural foramina are patent bilaterally. L5-S1: The thecal sac has a normal diameter. No evidence of disc bulge or protrusion. The neural foramina are patent bilaterally. CONCLUSION: 1. Multiple intradural, extra medullary homogeneously enhancing nodules throughout the lumbar and sa cral thecal sac as well as within the lower thoracic thecal sac. These are too numerous to count and likely represent multiple schwannomas. Meningiomas can also have this appearance. The largest lesion is noted at the L3-4 level centrally and measures 7 mm. There are also neural foraminal lesions on th e left at L5-S1 and on the right S1-S2 and L2-3. These also likely represent schwannomas. These lesio ns likely are related to the patient's known diagnosis of neurofibromatosis type II. Electronically signed by: Larry Mendez MD Board Certified Radiologist 03/19/2018 4:40 PM EST
--- NOTE | 2018-03-19 16:46 | MR ---
EXAM DATE: 03/19/2018 4:29 PM EST AGE/SEX: 27 years / Female INDICATIONS: Altered mental status. Neurofibromatosis type II. CLINICAL DATA: This is the patient's subsequent encounter. Patient reports that signs and symptoms h ave been present for > 1 year and indicates a pain score of 0/10. MEDICAL/SURGICAL HISTORY: . TBI, epilepsy . 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 . TECHNIQUE: Multiplanar, multisequence examination of the brain was performed without and with 5 ml Ga davist (gadobutrol) contrast as a single exam dose. FINDINGS: Approximate 1.4 cm extra-axial mass is seen in right high convexity posterior parietal most likely a small meningioma not present on the prior study from 2012. There is encephalomalacia in left mid osvaldo etal lobe with areas of congenital migrational anomalies at this site difficult to evaluate due to some degree of artifact from ventricular tube. The ventricles are slitlike. Separate meningiomas pres ent in the midline supracerebellar location dorsally measures 1.4 cm in size. 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 It measures 3 cm in transverse diameter, it me asured almost 2.8 cm on the study from 06/2012 therefore larger. There is also similar type of mass on the right side at the same level which measures 1.3 cm in size and also extends into the internal au ditory canal and this mass is also larger since the prior study. There is significant mass effect on the germán and fourth ventricle with significant deformity at this site and the mass effect is worse s rose 2012. The diffusion portion is unremarkable. CONCLUSION: 1. 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 2. There is a new meningioma in the right high convexity posterior parietal lobe. 3. Otherwise not significantly changed. Electronically signed by: Angelina Mello MD Board Certified Radiologist 03/19/2018 4:45 PM EST
[2018-03-21 13:29] LABS: Anti-Nuclear Antibody Screen Neg (Neg)
== END 2018-03-19 16:45 | disposition short-term general hospital (02) | DRG 885 ==
LOC: H4EA 16:20
PROVIDERS: ADMIT Student in an Organized Health Care Education/Training Program; ATTEND Student in an Organized Health Care Education/Training Program
CPT/HCPCS: 36600; 70450; 70553; 72156; 72157; 72158; 80048; 80061; 80076; 80156; 80177; 80299; 80307; 81001; 82140; 82491; 82550; 82552; 82607; 82805; 83036; 83735; 83918; 83921; 84425; 84439; 84443; 85025; 85651; 85652; 86038; 86430; 86431; 86592; 87086; 95819; 96361; 96372; 96376; 97162; A9585; G0378; G8987; G8988; J1630; J1650; J1953; J2060; J3420; J3480; J7030; Q0163

== ENCOUNTER 2018-03-19 11:50 | Inpatient (IN) ==
[2018-03-19] MEDS ORDERED: Bisacodyl 10 MG Supp RECTAL PRN (13:24)
[2018-03-19] MEDS ORDERED: Acetaminophen 325 MG Tablet PO PRN (13:24)
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
[2018-03-19] MEDS ORDERED: Topiramate 100 MG Tablet PO SCH (21:00)
[2018-03-19] MEDS: levETIRAcetam 500 MG Tablet PO SCH ×2 (22:24→22:30)
[2018-03-19] MEDS: Senna/Docusate Sodium 8.6/50 MG Tablet PO SCH ×2 (22:25→22:31)
[2018-03-19] MEDS: Topiramate 100 MG Tablet PO SCH ×2 (22:25→22:31)
[2018-03-19] MEDS: Topiramate 25 MG Tablet PO SCH ×2 (22:25→22:31)
[2018-03-19] MEDS: Lacosamide 100 MG Tablet PO SCH ×2 (22:25→23:00)
[2018-03-19] MEDS: carBAMazepine 100 MG Chewable Tablets PO SCH ×2 (22:25→22:31)
--- NOTE | 2018-03-20 08:09 | P.PNNEU ---
Subjective Active Medications: Active Medications Acetaminophen (Tylenol) 650 mg PO Q4H PRN PRN Reason: Temp > 100.4 Al Hydroxide/Mg Hydroxide (Milk Of Magnesia Liq) 30 ml PO Q12H PRN PRN Reason: Mild Constipation Bisacodyl (Dulcolax Supp) 10 mg RECTAL DAILY PRN PRN Reason: SEVERE CONSITIPATION Carbamazepine (Tegretol Chewable) 100 mg PO BID [facility] Last Admin: 03/19/18 22:31 Dose: 100 mg Lacosamide (Vimpat) 200 mg PO BID [facility] Last Admin: 03/19/18 23:00 Dose: 200 mg Lactulose (Lactulose Liq) 30 ml PO DAILY PRN PRN Reason: SEVERE CONSITIPATION Levetiracetam (Keppra) 1,500 mg PO BID [facility] Last Admin: 03/19/18 22:30 Dose: 1,500 mg Lorazepam (Ativan Inj) 1 mg IM Q6H PRN PRN Reason: Severe agitation Lorazepam (Ativan Inj) 2 mg IV.PUSH Q10M PRN PRN Reason: SEE LABEL COMMENTS Ondansetron HCl (Zofran Inj) 4 mg IV.PUSH Q6H PRN PRN Reason: NAUSEA OR VOMITING Phenobarbital (Phenobarbital) 60 mg PO Q12HR [facility] Risperidone (Risperdal) 1 mg PO BID [facility] Last Admin: 03/19/18 22:31 Dose: 1 mg Senna/Docusate Sodium (Kimi-Colace) 1 tab PO BID [facility] Last Admin: 03/19/18 22:31 Dose: 1 tab Sennosides (Senokot) 17.2 mg PO Q12H PRN PRN Reason: Moderate Constipation Sodium Chloride (Ns Flush) 2 ml IV.FLUSH BID [facility] Last Admin: 03/19/18 22:32 Dose: Not Given Sodium Chloride (Ns Flush) 2 ml IV.FLUSH PRN PRN PRN Reason: FLUSH AFTER USING IV ACCESS Topiramate (Topamax) 100 mg PO BID [facility] Last Admin: 03/19/18 22:31 Dose: 100 mg Topiramate (Topamax) 50 mg PO BID [facility] Last Admin: 03/19/18 22:31 Dose: 50 mg Allergies/Adverse Reactions: Allergies Allergy/AdvReac Type Severity Reaction Status Date / Time ibuprofen Allergy Severe HIVES Unverified 10/23/16 18:39 mold Allergy Mild HIVES Unverified 10/23/16 18:39 Physical Exam Vital signs: Vital Signs 03/19/18 20:00 03/20/18 00:00 03/20/18 04:00 Temperature 98.5 F 99.2 F 98.6 F Pulse Rate 99 H 90 100 H Respiratory Rate 18 18 18 Blood Pressure 98/56 L 105/64 100/63 Pulse Oximetry 97 98 98 Intake & Output 03/19/18 03/20/18 03/20/18 18:59 06:59 18:59 Weight 48.4 kg 48.9 kg Other: # Voids 2 Date of Last Bowel Movement 03/18/18 Weight On Admission 48.4 kg Narrative: awake alert Review/Management - Review/Management Plan: imp eeg 03/17 active left central sz focus i have started pbarb today and recheck eeg and if still active will dc cbz 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
[2018-03-20] MEDS: Lacosamide 100 MG Tablet PO SCH (10:35)
[2018-03-20] MEDS: levETIRAcetam 500 MG Tablet PO SCH (10:36)
[2018-03-20] MEDS: carBAMazepine 100 MG Chewable Tablets PO SCH (10:36)
[2018-03-20] MEDS: Senna/Docusate Sodium 8.6/50 MG Tablet PO SCH (10:36)
[2018-03-20] MEDS: Topiramate 25 MG Tablet PO SCH (10:36)
[2018-03-20] MEDS: Topiramate 100 MG Tablet PO SCH (10:37)
[2018-03-20 12:40] VITALS: BP 111/68; PULSE 97; RESP 18; TEMP 97.1; O2SAT 100
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
--- NOTE | 2018-03-20 14:58 | P.CONNS ---
History of Present Illness Service: Neurology Primary Care Provider: UNKNOWN Chief Complaint: Seizures with psychosis History of Present Illness: 27yoF with known NF2 s/p WARP DRESSER shunt by Dr. Xiao. Admitted with psychosis and seizures. 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 Patient has been hearing voices over last few months and not making decisions that are in line with her best interest. She was brought to ED as a thornton act by her parents shortly before Debbie and admitted to Psych. Neurosurgery at that time evaluated her shunt and found slit ventricles and an intact shunt system. 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 [facility] - History History Provided By: Medical Record - Medical History Medical History: Medical History (Last Reviewed 03/19/18 @ 18:04 by Sara Mahan) Closed head injury History of CVA (cerebrovascular accident) Neurofibromatosis II - Surgical History Surgical History: Surgical History (Last Reviewed 03/19/18 @ 18:04 by Sara Mahan) History of brain shunt - Tobacco History Second Hand Smoke Exposure: Yes Smoking Status: Cognitive impairment Tobacco Type: Cigarettes - Alcohol History How Often Do You Have a Drink Containing Alcohol: Never - Substance Use History Substance History: Past History - Travel History Recent Travel in the [place] Within the Last 8 Weeks: No Recent Travel Out of the Country Within the Last 8 Weeks: No Medications and Allergies Active Medications: Active Medications Acetaminophen (Tylenol) 650 mg PO Q4H PRN PRN Reason: Temp > 100.4 Al Hydroxide/Mg Hydroxide (Milk Of Magnesia Liq) 30 ml PO Q12H PRN PRN Reason: Mild Constipation Bisacodyl (Dulcolax Supp) 10 mg RECTAL DAILY PRN PRN Reason: SEVERE CONSITIPATION Carbamazepine (Tegretol Chewable) 100 mg PO BID [facility] Last Admin: 03/20/18 10:36 Dose: 100 mg Lacosamide (Vimpat) 200 mg PO BID [facility] Last Admin: 03/20/18 10:35 Dose: 200 mg Lactulose (Lactulose Liq) 30 ml PO DAILY PRN PRN Reason: SEVERE CONSITIPATION Levetiracetam (Keppra) 1,500 mg PO BID [facility] Last Admin: 03/20/18 10:36 Dose: 1,500 mg Lorazepam (Ativan Inj) 1 mg IM Q6H PRN PRN Reason: Severe agitation Lorazepam (Ativan Inj) 2 mg IV.PUSH Q10M PRN PRN Reason: SEE LABEL COMMENTS Ondansetron HCl (Zofran Inj) 4 mg IV.PUSH Q6H PRN PRN Reason: NAUSEA OR VOMITING Phenobarbital (Phenobarbital) 60 mg PO Q12HR [facility] Last Admin: 03/20/18 10:36 Dose: 60 mg Risperidone (Risperdal) 1 mg PO BID [facility] Last Admin: 03/20/18 10:37 Dose: 1 mg Senna/Docusate Sodium (Kimi-Colace) 1 tab PO BID [facility] Last Admin: 03/20/18 10:36 Dose: 1 tab Sennosides (Senokot) 17.2 mg PO Q12H PRN PRN Reason: Moderate Constipation Sodium Chloride (Ns Flush) 2 ml IV.FLUSH BID [facility] Last Admin: 03/20/18 10:37 Dose: Not Given Sodium Chloride (Ns Flush) 2 ml IV.FLUSH PRN PRN PRN Reason: FLUSH AFTER USING IV ACCESS Topiramate (Topamax) 100 mg PO BID [facility] Last Admin: 03/20/18 10:37 Dose: 100 mg Topiramate (Topamax) 50 mg PO BID [facility] Last Admin: 03/20/18 10:36 Dose: 50 mg Allergies Allergy/AdvReac Type Severity Reaction Status Date / Time ibuprofen Allergy Severe HIVES Unverified 10/23/16 18:39 mold Allergy Mild HIVES Unverified 10/23/16 18:39 Home Medications Medication Instructions Recorded Confirmed Type escitalopram oxalate [Lexapro] 10 mg PO DAILY 03/11/18 03/11/18 History lacosamide [Vimpat] 200 mg PO BID 03/11/18 03/11/18 History levetiracetam [Keppra] 1,500 mg PO BID 03/11/18 03/11/18 History topiramate [Topamax] 150 mg PO BID 03/11/18 03/11/18 History Exam Vital signs: Vital Signs 03/19/18 20:00 03/20/18 00:00 03/20/18 04:00 Temperature 98.5 F 99.2 F 98.6 F Pulse Rate 99 H 90 100 H Respiratory Rate 18 18 18 Blood Pressure 98/56 L 105/64 100/63 Pulse Oximetry 97 98 98 03/20/18 08:00 03/20/18 12:00 Temperature 97.5 F L 97.1 F L Pulse Rate 95 H 97 H Respiratory Rate 20 18 Blood Pressure 102/65 111/68 Pulse Oximetry 97 100 Intake & Output 03/19/18 03/20/18 03/20/18 18:59 06:59 18:59 Weight 48.4 kg 48.9 kg Other: # Voids 2 Date of Last Bowel Movement 03/18/18 Weight On Admission 48.4 kg Narrative: A&O x 2.5 CN II-XII intact Shunt system intact Motor 5/5 UE/LE Mildly delusional Results - Laboratory Findings Abnormal lab findings: Abnormal Labs 03/20/18 12:48 ESR 45 H Assessment and Plan - Plan 27yoF with NF2 and 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 Plan: Discussed with Dr. Renee Hager and the patient's parents. Given the degree of compression, would recommend inpatient transfer to [facility] and Dr. Hager has accepted. Understanding there are significant psychiatric comorbidities which may or may not be related to the tumor. The patient is currently on the floor and this seems reasonable. Patient's mother phone number: Holly Aleman.
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
--- NOTE | 2018-03-20 21:25 | MG ---
cc: Lyndon Zepeda MD ELECTROENCEPHALOGRAM RECORD NUMBER: [id number] DESCRIPTION: A 7-9 Hz posterior rhythm, 20-50 microvolts. Phase reversal, left temporal, at C3, epoch 20. Delta bursts, sharp activity at C3, epoch 23 and epoch 24. Background showing 6-8 Hz activity. Several other episodes of paroxysmal sharply contoured theta and delta bursts. Reduced driving with photic stimulation. The lateral third of the EEG showing minimal sharps or bursts. Single-lead EKG showing sinus rhythm. INTERPRETATION: Similar to previous electroencephalogram with paroxysmal left frontocentral sharp complexes. No active seizures, however. Clinical correlation. MD MAYRA Verdin/elise , 08:52 PM , 08:59 PM
== END 2018-03-20 18:33 | disposition short-term general hospital (02) | DRG 91 ==
LOC: N05 18:04
PROVIDERS: ADMIT Family Medicine; ATTEND Family Medicine
DX: F29 Unspecified psychosis not due to a substance or known physiological condition; Z87.820 Personal history of traumatic brain injury; G40.909 Epilepsy, unspecified, not intractable, without status epilepticus; E53.8 Deficiency of other specified B group vitamins; I69.993 Ataxia following unspecified cerebrovascular disease; Q85.02 Neurofibromatosis, type 2; E55.9 Vitamin D deficiency, unspecified; D49.6 Neoplasm of unspecified behavior of brain; G93.5 Compression of brain; Z79.899 Other long term (current) drug therapy; Z98.2 Presence of cerebrospinal fluid drainage device